=== PATIENT | male | born 1995 | race Hispanic/Latino ===

== ENCOUNTER 2017-06-22 07:13 | Emergency (ER) | payer SELFPAY | END 2017-06-22 07:35 | disposition home or self-care (01) | LOC: SCSER 07:13 | DX: K52.9 Noninfective gastroenteritis and colitis, unspecified (principal) | CPT/HCPCS: 99283 ==

== ENCOUNTER 2019-03-06 19:17 | Emergency (ER) | payer SELFPAY ==
[2019-03-06 19:39] LABS: Bilirubin Negative (Negative); Blood, Urine Small (Negative); Clarity Slightly Cloudy (Clear); Glucose, Urine (Dipstick) Negative (Negative); Leukocyte Negative (Negative); Nitrite Negative (Negative); Protein, Urine (Dipstick) Negative (Neg-Trace); Urobilinogen 0.2 mg/dL (Less than 2)
[2019-03-06 19:43] LABS: Bacteria/HPF None Seen HPF (None Seen); RBC/HPF 0-3 HPF (0-3); Squamous Epithelial 0-3 HPF (0-3); WBC/HPF 0-3 HPF (0-3)
[2019-03-06] MEDS ORDERED: Ketorolac Tromethamine 30 MG/ML VIAL ONE (20:17)
--- NOTE | 2019-03-06 21:17 | ULT ---
Exam: Testicular/scrotal ultrasound HISTORY: Left hemiscrotal pain COMPARISON: None TECHNIQUE: Multiplanar grayscale and color Doppler images were obtained in a testicular/scrotal ultra sound. Spectral analysis of the Doppler waveforms of the testicles were performed. FINDINGS: Right testicle: Normal in echogenicity. No focal mass. Normal internal flow. Left testicle: Normal in echogenicity. No focal mass. Normal internal flow. Right epididymis. Normal internal flow. No epididymal cyst. Left epididymis. Normal internal flow. Small epididymal cyst. Small volume right hydrocele is present. Left side varicocele is present. IMPRESSION: No evidence of testicular torsion or mass. Additional details are described above.
== END 2019-03-06 21:28 | disposition home or self-care (01) ==
LOC: SCSER 19:17
DX: I86.1 Scrotal varices (principal); F17.200 Nicotine dependence, unspecified, uncomplicated
CPT/HCPCS: 76870; 81003; 81015; 93976; 96372; J1885

== ENCOUNTER 2019-11-30 16:14 | Emergency (ER) | payer OTHER, SELFPAY ==
[2019-12-02 12:25] LABS: SARS-CoV-2 MS2 Positive; SARS-CoV-2 N Gene Negative; SARS-CoV-2 S Gene Negative; SARS-CoV-2 orf1ab Negative
== END 2019-11-30 16:21 | disposition home or self-care (01) ==
LOC: ERS 16:14
DX: Z20.828 Contact with and (suspected) exposure to other viral communicable diseases (principal)
CPT/HCPCS: 87635; 99283; U0003